=== PATIENT | female | born 1975 | race Caucasian/White ===

== ENCOUNTER 2020-06-17 12:19 | Outpatient (CLI) | payer BC, SELFPAY ==
--- NOTE | ~2020-06-17 | XR_ITS ---
EXAMINATION: XR chest 2V EXAM DATE: 06/17/2020 12:43 INDICATION: Heartburn, chest pressure and discomfort. TECHNIQUE: Frontal and lateral projections of the chest obtained and reviewed. There is no prior kalyani dy for comparison. FINDINGS: The lungs are hyperinflated which can be seen with chronic obstructive pulmonary disease ( a clinical diagnosis of functional impairment), but is not diagnostic of it. The lungs are clear. Th ere are no pleural effusions. The cardiomediastinal silhouette is within normal limits. There is no pneumothorax suspected. The bones and soft tissues are unremarkable. IMPRESSION: 1. No acute cardiopulmonary findings. 2. Moderate hyperinflation. Reviewed, dictated and finalized at location B.
[2020-06-17 12:36] LABS: Basophils Absolute Auto 0.04 K/mm3 (0.00-0.10); Basophils Percent Auto 0.5 % (0.0-1.0); Eosinophils Absolute Auto 0.13 K/mm3 (0.02-0.50); Eosinophils Percent Auto 1.6 % (1.0-6.0); Hematocrit 41.8 % (35.0-49.0); Hemoglobin 13.9 g/dL (12.0-15.0); Immature Granulocyte Absolute 0.03 K/mm3 (0.00-0.00); Immature Granulocyte Percent A 0.4 % (0.0-0.0); Lymphocytes Absolute Auto 2.22 K/mm3 (1.10-4.50); Mean Corpuscular HGB Conc 33.3 g/dL (32.0-36.0); Mean Corpuscular Hemoglobin 31.8 pg (27.0-31.0); Mean Corpuscular Volume 95.7 fL (78.0-102.0); Mean Platelet Volume 9.6 fl (9.2-11.8); Monocytes Absolute Auto 0.57 K/mm3 (0.10-0.90); Monocytes Percent Auto 7.2 % (2.0-11.0); Neutrophils Absolute Auto 4.9 K/mm3 (1.7-7.2); Neutrophils Percent Auto 62.3 % (50.0-70.0); Platelet Count Result 251 K/mm3 (150-420); Red Blood Count 4.37 M/mm3 (4.20-5.40); Red Cell Distribution Width 11.9 % (11.6-14.4); White Blood Count 7.9 K/mm3 (4.8-10.8)
[2020-06-17 13:27] LABS: Alanine Aminotransferase 23 U/L (14-59); Alkaline Phosphatase 63 U/L (46-116); Anion Gap 7 mmol/L (8-16); Aspartate Amino Transferase 14 U/L (15-37); Bilirubin,Total 0.6 mg/dL (0.00-1.00); Blood Urea Nitrogen 10 mg/dL (7-18); Calcium 8.9 mg/dL (8.5-10.1); Carbon Dioxide 30 mmol/L (21-32); Chloride 104 mmol/L (98-108); Creatine Kinase 35 U/L (26-192); Creatine Kinase MB < 0.50 ng/mL (0.00-5.00); Estimated Glomerular Filt Rate > 60; Glucose 99 mg/dL (70-99); Osmolality Calculated 291 mOsm/kg (285-295); Sodium 141 mmol/L (136-145); Total Protein 7.1 g/dL (6.4-8.2); Troponin I < 0.02 ng/mL (0.00-0.056)
== END 2020-06-17 12:20 | disposition home or self-care (01) ==
LOC: CHSLAB 12:21
PROVIDERS: PCP Internal Medicine; Visit Provider Internal Medicine
DX: R07.9 Chest pain, unspecified (principal)
CPT/HCPCS: 36415; 71046; 80053; 82550; 82553; 84484; 85025

== ENCOUNTER → 2020-07-17 16:29 | Outpatient (CLI) | payer BC, SELFPAY ==
--- NOTE | ~2020-07-17 | MM_ITS ---
EXAMINATION: MM screening do BI w elsie HISTORY: Screening mammogram TECHNIQUE: Craniocaudal and mediolateral oblique 3-D tomosynthesis images were obtained and synthetic 2-D images were generated. CAD analysis was submitted and interpreted. COMPARISON: 04/21/2020 diagnostic right digital mammogram and complete right breast ultrasound 04/15/2016, 06/02/2014 bilateral digital screening mammogram examinations BREAST PARENCHYMAL COMPOSITION: The breasts are heterogeneously dense, which may obscure small masses . FINDINGS: There is no evidence of suspicious mass, calcification, or architectural distortion to sugg est malignancy in either breast. There has been no suspicious interval change. IMPRESSION: 1. No mammographic evidence of malignancy. 2. Recommend routine screening mammography in one year. BI-RADS Category 1: Negative Reviewed, dictated and finalized at location A.
== END ==
PROVIDERS: Visit Provider Obstetrics & Gynecology Gynecology
DX: Z12.31 Encounter for screening mammogram for malignant neoplasm of breast (principal)
CPT/HCPCS: 77063; 77067

== ENCOUNTER → 2021-03-01 01:06 | Outpatient (CLI) | payer BC, SELFPAY ==
[2021-03-01 19:37] LABS: SARS-CoV-2 RNA PCR Negative
== END ==
PROVIDERS: Visit Provider Internal Medicine Gastroenterology
DX: Z01.812 Encounter for preprocedural laboratory examination (principal); Z20.822 Contact with and (suspected) exposure to COVID-19
CPT/HCPCS: C9803; U0003; U0005

== ENCOUNTER 2021-03-05 01:35 | Day surgery (SDC) | payer BC, SELFPAY ==
[2021-02-21 12:53] VITALS: BMI 22.4
[2021-03-05 07:53] VITALS: BP 132/75; PULSE 58; RESP 15; TEMP 36.8; O2SAT 100; BMI 22.3
[2021-03-05] MEDS: LACTATED RINGERS 1,000 ML 150 ML IV CONT (07:58)
--- NOTE | 2021-03-05 08:16 | WPDANESEPPF ---
Anes - Initial Pre Proc Eval Procedure: Operation Date: 03/05/21 08:30 Proposed Procedures p Screening Colonoscopy - Edward Rebolledo MD Date/Time: 03/05/21 08:16 Surgeon: Edward Rebolledo MD Pre Op Diagnosis: neoplasm screening Patient Data Age: 45 Gender: F Height: 5 ft 5 in Weight: 60.8 kg Last Vital Signs Temp 98.3 F 03/05/21 07:53 Pulse 58 L 03/05/21 07:53 Resp 15 03/05/21 07:53 BP 132/75 03/05/21 07:53 Pulse Ox 100 03/05/21 07:53 Allergies Allergy/AdvReac Type Severity Reaction Status Date / Time No Known Allergies Allergy Mild Verified 03/05/21 07:52 Home Medications Medication Instructions Recorded Confirmed Type sodium,potassium,mag sulfates 17.5 See Rx Instructions PO .COMPLEX 02/12/21 Rx gram-3.13 gram-1.6 gram oral soln #354 ml bupropion HCl 150 mg PO DAILY 02/21/21 03/05/21 History Patient hx anesthesia problems: none Family hx anesthesia problems: none PMFSH Past Medical History Medical History (Updated 03/05/21 @ 08:17 by Gagan Alan MD) Anxiety Depression Family History Family History (Updated 05/24/14 @ 07:13 by DOCTOR UNKNOWN) Grandparent Malignant neoplasm of prostate Family history of coronary artery disease Father Family history of coronary artery disease Social History Social History Smoking status: Current every day smoker Alcohol intake: current Alcohol use details: socially Substance use: never Substance use type: does not use Living arrangements: with family Spiritual care concerns: No Anes - Eval Final PreProcedure Day of Procedure 03/05/21 08:16 Patient weight: normal Heart: regular rate and rhythm Lungs: clear to auscultation Airway: Mallampati scale class II Neurological: alert and oriented Last oral intake: >/= 8 hours ASA classification: II Emergent: no Anesthetic plan: proceed Anesthesia type and monitoring: general GIVS and standard monitoring Informed Consent: The patient's anesthetic plan and its attendant risks and benefits were discussed with the patient/family/POA. Questions were solicited and answers provided to the satisfaction of the patient/family/POA.
--- NOTE | 2021-03-05 08:58 | WPDGICN ---
Assessment and Plan Assessment and plan (1) Family history of colonic polyps: Code(s): Z83.71 - Family history of colonic polyps Status: Acute Assessment and Plan: Patient's father had colon polyps. Plan is for surveillance colonoscopy at this time further recommendations will be given after endoscopy. (2) Left sided abdominal pain: Code(s): R10.9 - Unspecified abdominal pain Status: Acute Assessment and Plan: Patient has a history of chronic left-sided abdominal pain. Etiology unclear she does have a CT scan that was unremarkable. I have suggested she increase the fiber in her diet for possible IBS. GI Consult Note Consult date/time: 03/05/21 08:58 HPI: Shweta Knight is a 45 year old female Seen in evaluation at the request of Dr. Sim Solorzano. patient presents for neoplasia screening colonoscopy. Patient's current weight appetite bowel movements are normal. Her family history is significant her father had colon polyps. Patient does have a history of chronic intermittent left-sided abdominal pain that is gnawing and then occasionally sharp. Recent CT scan of the abdomen was unremarkable. Patient denies any bleeding her bowel habits are normal. Review of Systems Review of Systems: All systems reviewed & are unremarkable except as noted in HPI and below PMFSH Past Medical History Medical History Anxiety Depression Family History Family History (Updated 05/24/14 @ 07:13 by DOCTOR UNKNOWN) Grandparent Malignant neoplasm of prostate Family history of coronary artery disease Father Family history of coronary artery disease Social History Social History Smoking status: Current every day smoker Alcohol intake: current Alcohol use details: socially Substance use: never Substance use type: does not use Living arrangements: with family Spiritual care concerns: No Meds Home Medications and Allergies Home Medications Medication Instructions Recorded Confirmed Type sodium,potassium,mag sulfates 17.5 See Rx Instructions PO .COMPLEX 02/12/21 Rx gram-3.13 gram-1.6 gram oral soln #354 ml bupropion HCl 150 mg PO DAILY 02/21/21 03/05/21 History Allergies Allergy/AdvReac Type Severity Reaction Status Date / Time No Known Allergies Allergy Mild Verified 03/05/21 07:52 Vital Signs Vital Signs - 24 hr 03/05/21 07:53 Temperature 98.3 F Pulse Rate 58 L Respiratory Rate 15 Blood Pressure 132/75 Pulse Oximetry 100 Exam Narrative: Exam Narrative: Physical exam reveals patient be alert. Vital signs stable. HEENT exam is unremarkable. Patient is anicteric. Lungs are clear to auscultation and percussion. Heart is without murmur or extra sounds. Abdominal exam bowel sounds are present soft nontender with no organomegaly. Digital external rectal exam is normal.
[2021-03-05 09:02] VITALS: BP 106/65; PULSE 58; RESP 16; O2SAT 100
[2021-03-05 09:12] VITALS: BP 130/79; PULSE 55; RESP 22; O2SAT 100
[2021-03-05 09:22] VITALS: BP 139/84; PULSE 46; RESP 17; O2SAT 100
== END 2021-03-05 09:29 | disposition home or self-care (01) ==
PROVIDERS: PCP Internal Medicine; Visit Provider Internal Medicine Gastroenterology
PROC: 0DJD8ZZ Inspection of Lower Intestinal Tract, Via Natural or Artificial Opening Endoscopic (ICD-10-PCS; CPT 45378; principal; 2021-03-05 08:30)
DX: Z12.11 Encounter for screening for malignant neoplasm of colon (principal); K62.1 Rectal polyp; K64.8 Other hemorrhoids; R10.9 Unspecified abdominal pain; Z83.71 Family history of colonic polyps; F17.200 Nicotine dependence, unspecified, uncomplicated; F41.8 Other specified anxiety disorders
CPT/HCPCS: 45385; 88305; J2704; J7120

== ENCOUNTER → 2021-11-17 14:14 | Outpatient (CLI) | payer BC, SELFPAY ==
--- NOTE | ~2021-11-17 | MMUS_ITS ---
EXAMINATION: MM diagnostic do BI w elsie, US breast BI complete HISTORY: Bilateral breast masses TECHNIQUE: ML, MLO and craniocaudal 3-D tomosynthesis images of both breasts were performed and [facility] were [facility]. CAD analysis was submitted and interpreted. High resolution complete bilateral breast ultrasound was performed. COMPARISON: 07/17/2020 bilateral screening mammogram 04/21/2016 diagnostic right mammogram and complete right breast ultrasound 04/15/2016 bilateral screening mammogram BREAST PARENCHYMAL COMPOSITION: The breasts are heterogeneously dense, which may obscure small masses . FINDINGS: MAMMOGRAPHIC FINDINGS: No suspicious mass or architectural distortion, malignant calcification, skin thickening or retractio n or significant new or developing density is detected. ULTRASOUND: Right breast: 12:00 periareolar area at area of clinical complaint of palpable lump: 4.9 x 7.3 x 7.7 mm incompletel y circumscribed heterogeneous solid lesion, with adjacent vascularity on color flow imaging; this mas s is new since 04/21/2016. Ultrasound biopsy is recommended. 10:00 4 cm from nipple: Parallel circumscribed hypoechoic 7.4 x 2.2 x 7 mm hypoechoic lesion with thr ough transmission, consistent with benign process Subareolar: 2.5 x 5.6 x 5.8 mm circumscribed parallel complicated cyst with through transmission, sim ign-appearing Left breast: 3:00 3 cm from nipple: Parallel circumscribed hypoechoic 2.4 x 3.8 x 4.4 mm lesion without internal v ascularity or posterior shadowing, likely benign 4:00 0.5 cm from nipple: Similar parallel circumscribed hypoechoic 5.5 x 4.4 x 2.1 mm lesion with thr ough transmission, no internal vascularity, benign in appearance 11:00 3 cm from nipple: Parallel circumscribed sonolucency measuring 4 x 3.3 x 2.2 mm, with through t ransmission, likely a cyst, benign IMPRESSION: Right breast 12:00 incompletely circumscribed solid mass measuring 4.9 x 7.3 x 7.7 mm, new since 04/21; ultrasound-guided biopsy is recommended BI-RADS Category 4: Suspicious abnormality; biopsy should be considered Dr. Mazariegos telephoned the report and ultrasound guided biopsy recommendation of the right breast 12:00 lesion on November 17, 2021 at 1530 hours to triage voicemail. Reviewed, dictated and finalized at location A. 411 DIRECTORY ASSISTANCE OPERATOR IMPRESSION: Right breast 12:00 incompletely circumscribed solid mass measuring 4.9 x 7.3 x 7.7 mm, new since 04/21/2016; ultrasound-guided biopsy is recommended BI-RADS Category 4: Suspicious abnormality; biopsy should be considered Dr. Mazariegos telephoned the report and ultrasound guided biopsy recommendation of [facility] right breast 12:00 lesion on November 17, 2021 at 1530 hours to triage voice mail.
== END ==
PROVIDERS: Visit Provider Nurse Practitioner
DX: N63.10 Unspecified lump in the right breast, unspecified quadrant (principal); N63.20 Unspecified lump in the left breast, unspecified quadrant; R92.8 Other abnormal and inconclusive findings on diagnostic imaging of breast
CPT/HCPCS: 76641; 77062; 77066; G0279

== ENCOUNTER 2025-03-14 11:06 | Outpatient (CLI) | payer BC, SELFPAY ==
--- NOTE | ~2025-03-14 | XR_ITS ---
Clinical Indication: Hypertension, dyspnea, chest pain PA and lateral views of the chest: Comparison: 06/17/2020 Findings: The lungs are clear, without evidence of focal consolidation or pleural effusion. Cardiome diastinal silhouette is within normal limits. Bones and soft tissues are unremarkable. Impression: Normal chest. Reviewed, dictated and finalized at location . Impression: Normal chest.
[2025-03-14 11:20] LABS: Basophils Absolute Auto 0.05 K/mm3 (0.00-0.10); Basophils Percent Auto 0.6 % (0.0-1.0); Eosinophils Absolute Auto 0.22 K/mm3 (0.02-0.50); Eosinophils Percent Auto 2.8 % (1.0-6.0); Hematocrit 42.2 % (35.0-49.0); Immature Granulocyte Absolute 0.04 K/mm3 (0.00-0.00); Immature Granulocyte Percent A 0.5 % (0.0-0.0); Lymphocytes Absolute Auto 1.92 K/mm3 (1.10-4.50); Mean Corpuscular HGB Conc 33.2 g/dL (32-36); Mean Corpuscular Hemoglobin 31.5 pg (27.0-31.0); Mean Platelet Volume 9.2 fl (9.2-11.8); Monocytes Absolute Auto 0.58 K/mm3 (0.10-0.90); Monocytes Percent Auto 7.3 % (2.0-11.0); Neutrophils Absolute Auto 5.18 K/mm3 (1.70-7.20); Neutrophils Percent Auto 64.8 % (50.0-70.0); Nucleated Red Blood Cells Absolute Auto 0.02 K/mm3 (0.00-0.00); Nucleated Red Blood Cells Perc 0.3 % (0-0.0); Platelet Count Result 270 K/mm3 (150-420); Red Blood Count 4.44 M/mm3 (4.20-5.40)
[2025-03-14 11:22] LABS: Add Urine Microscopic? NO; Appearance Urine Clear (Clear); Bilirubin Urine Negative (Negative); Blood Urine Trace-intact (Negative); Color Urine Light Yellow (Yellow); Glucose Urine UA Negative (Negative); Ketones Urine Trace (Negative); Leukocyte Esterase Ur Negative (Negative); Nitrate Urine Negative (Negative); Protein Urine Negative (Negative); Urobilinogen Urine 0.2 mg/dL (0.2-1.0); pH Urine 6.5 (5.0-8.0)
[2025-03-14 11:37] LABS: Alanine Aminotransferase 30 U/L (6-35); Albumin Level 4.2 g/dL (3.5-5.1); Alkaline Phosphatase 60 U/L (38-126); Anion Gap 3 mmol/L (4-12); Aspartate Amino Transferase 32 U/L (14-36); Bilirubin,Total 0.8 mg/dL (0.2-1.3); Blood Urea Nitrogen 8 mg/dL (7-17); CRP < 0.5 mg/dL (<1.0); Calcium 8.9 mg/dL (8.4-10.2); Carbon Dioxide 27 mmol/L (22-30); Chloride 106 mmol/L (98-107); Cholesterol 184 mg/dL (0-200); Estimated Glomerular Filt Rate > 60; Glucose 96 mg/dL (65-110); HDL Direct 79 mg/dL; LDL Cholesterol Calculated 94 mg/dL (<130); Osmolality Calculated 280 mOsm/kg (285-295); Potassium 4.2 mmol/L (3.4-5.0); Sodium 136 mmol/L (137-145); Total Protein 6.9 g/dL (6.3-8.2); Triglycerides 55 mg/dL (<150)
[2025-03-14 12:04] LABS: Thyroid Stimulating Hormone 0.913 uIU/mL (0.465-4.680)
--- OUTSIDE RECORDS SUMMARY | 2025-03-14 12:56 | XMS_ITS | Referral Summary ---
Author Organization [facility] Address [address] [place] [address] Care Team Providers Care Sustainable Landscape Architect Name Role Phone Perfecto Solorzano MD Primary Care Provider [phone] Allergies No known active allergies Medications ibuprofen (ADVIL,MOTRIN) 400 mg tablet Take by mouth every 6 (six) hours as needed for pain Active Active Problems Problem Noted Date Diagnosed Date Mammogram abnormal 12/24/2021 Depression 11/10/2012 Overview (01/02/2017): Depression Atopic rhinitis 11/10/2012 Overview (01/02/2017): Allergic rhinitis Current smoker 11/09/2012 Overview (01/02/2017): Smoker Social History Tobacco Use Types Packs/Day Years Used Date Smoking Tobacco: Every Day Tobacco Cessation:Ready to Q uit: Not Asked; Counseling Given: Not Answered Alcohol Use Standard Drinks/Week Comments Yes 0 (1 standard drink = 0.6 oz pur e alcohol) AUDIT-C Answer Date Recorded Q1: How often do you have a drink containing alcohol? 4 or more times a week 12/24/2021 Q2: How many drinks containi ng alcohol do you have on a typical day when you are drinking? 3 or 4 Q3: How often do you have si x or more drinks on one occasion? 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 Gender Identity Not on file Sexual Orientation Not on file Last Filed Vital Signs Vital Sign Reading Time Taken Comments Blood Pressure 120/76 02/22/2014 3:53 PM CDT Pulse 76 02/22/2014 3:53 PM CDT Temperature - - Respiratory Rate - - Oxygen Saturation 98% 12/07/2013 3:45 PM CDT Inhaled Oxygen Concentration - - Weight 59.4 kg (130 lb 15.3 oz) 04/02/2023 9:09 AM CDT Height 162.6 cm (5' 4.02) 04/02/2023 9:09 AM CD T Body Mass Index 22.47 04/02/2023 9:09 AM CDT Plan of Treatment Not on file Medical Devices Implanted Type Area Motors And Generators Inspector Device Identifier Shelf Expiration Date Model / Serial / Lot Bard Peripheral Vascular Ultraclip Bard 17ga 10cm 2 Trigger Permanent Ultrasound [id number] - [id number] Implanted:Qty: 1 on 01/05/2022 at [facility] Bard Peripheral Vascular [id number] / / Procedures Procedure Name Priority Date/Time Associated Diagnosis Comments SCREENING MAMMOGRAM BILATERAL W [place] Schedule Routine, Read Routine (OP Routine) 09/29/2024 10:19 AM SENIOR PROPERTY ACCOUNTANT Screening mammogram, encounter for from Last 3 Months or Most Recently Relevant to Health Maintenance Results * Screening Mammogram Bilateral [place] (09/29/2024 10:19 AM SENIOR PROPERTY ACCOUNTANT) Anatomical Region Laterality Modality Breast Bilateral Mammography Narrative 09/29/2024 1:53 PM SENIOR PROPERTY ACCOUNTANT Mammogram Technique: Bilateral Digital Breast Tomosynthesis, Bilateral C-view 2D Screening mammogram. Views obtained: bilateral craniocaudal and bilateral mediolateral oblique. Computer Aided Detection was performed. Mammogram Findings: The present examination has been compared to prior imaging studies performed at [facility] on 04/02/2023, and at [facility] on 07/17/2020 and 11/17/2021. The breasts are heterogeneously dense, which may obscure small masses. There is no suspicious abnormality in either breast. Impression: There is no mammographic evidence of malignancy. Annual screening mammography is recommended. If supplemental screening is desired, breast MRI would be recommended in this patient with heterogeneously dense breasts. OVERALL FINAL ASSESSMENT: BI-RADS CATEGORY 1: Negative. Procedure Note Cortney Paulson MD - 09/29/2024 Mammogram Technique: Bilateral Digital Breast Tomosynthesis, Bilateral C-view 2D Screening mammogram. Views obtained: bilateral craniocaudal and bilateral mediolateral oblique. Computer Aided Detection was performed. Mammogram Findings: The present examination has been compared to prior imaging studies performed at [facility] on 04/02/2023, and at [facility] on 07/17/2020 and 11/17/2021. The breasts are heterogeneously dense, which may obscure small masses. There is no suspicious abnormality in either breast. Impression: There is no mammographic evidence of malignancy. Annual screening mammography is recommended. If supplemental screeningis desired, breast MRI would be recommended in this patient with heterogeneously dense breasts. OVERALL FINAL ASSESSMENT: BI-RADS CATEGORY 1: Negative. us Self Screening Mammogram IMG MAMMO PROCEDURES Fi nal Result from Last 3 Months or Most Recently Relevant to Health Maintenance [place] [place] [employer] [place] [facility] Care Teams Sustainable Landscape Architect Relationship Specialty Start Date End Date Perfecto Solorzano MD PCP - General Internal Medicine 11/19/21
--- OUTSIDE RECORDS SUMMARY | 2025-03-14 12:57 | XMS_ITS | Encounter Summary ---
Author Organization [facility] Healthcare Address [address] [place] [address] Care Team Providers Care Building Maintenance Repairer Name Role Phone Glory Hinojosa MD Primary Care Provide r Reason for Visit * Diagnostic Imaging (Routine) - Closed Specialty Diagnoses / Procedures Referred By Contsasha t Referred To Contact Procedures Breast Imaging Screening Outside Reference Aft, Jaieme Fox MD PhD [address] [place] [id number] Phone: tel: fax: Referral ID Status Reason Start Date Expiration Date Visits Re quested Visits Authorized [id number] Closed 12/23/2021 01/22/2023 1 1 Encounter Details Date Type Department Care Team (Late st Contact Info) Description 04/15/2016 Hospital Encounter [facility] [address] [place] [address] Social History Tobacco Use Types Packs/Day Years Used Date Smoking Tobacco: Every Day Alcohol Use Standard Drinks/Week Comments Yes 0 [...] on file 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 Gender Identity Not on file Sexual Orientation Not on file documented as of this encounter Functional Status documented as of this encounter Plan of Treatment Not on file documented as of this encounter Procedures Procedure Name Priority Date/Time Associated Diagnosis Comments BREAST IMAGING MG SCREENING OUTSIDE REFERENCE Routine 04/15/2016 12:00 AM CDT documented in this encounter Results * Breast Imaging Screening Outside Reference (04/15/2016 12:00 AM CDT) Impressions [facility] - 12/23/2021 10:06 AM CDT These images are for Reference purposes only and have not been reviewed by [facility]. There will be no report generated by a [facility] Radiologist. Narrative [facility] - 12/23/2021 10:06 AM CDT EXAMINATION: Images For Reference Purposes Only us Jaimee Aldana MD PhD IMG MAMMO PROCEDURES Final Result [facility] documented in this encounter Visit Diagnoses Not on filedocumented in this encounter Care Teams Building Maintenance Repairer Relationship Specialty Start Date End Date Glory Hinojosa MD PCP - General 11/15/13 11/18/21 documented as of this encounter
--- OUTSIDE RECORDS SUMMARY | 2025-03-14 12:57 | XMS_ITS | Clinical Summary ---
Author Organization [facility] Address [address] [place] [id number] Care Team Providers Care Talend Developer Name Role Phone Perfecto Solorzano MD Primary Care Provider [phone] Allergies No known active allergies Medications ibuprofen (ADVIL,MOTRIN) 400 mg tablet Take by mouth every 6 (six) hours as needed for pain Active Active Problems Problem Noted Date Diagnosed Date Mammogram abnormal 12/24/2021 Depression 11/10/2012 Overview (01/02/2017): Depression Atopic rhinitis 11/10/2012 Overview (01/02/2017): Allergic rhinitis Current smoker 11/09/2012 Overview (01/02/2017): Smoker Surgical History Surgery Date Site/Laterality Comments SECTION section SECTION 2004 section OTHER SURGICAL HISTORY eye muscle surgery BREAST BIOPSY 01/05/2022 Right Medical History Medical History Date Comments Depression Depression History of multiple allergies Al lergies Hx Other Medical sinus problems Anxiety disorder Anxiety Family History Medical History Relation Name Comments Coronary artery disease Father Ramez nary artery disease, premature; Prostate cancer Maternal Grandfather Breast cancer Maternal Great-Grandmother 60's Kidney cancer Maternal Great-Grandmother 70's Coronary artery disease Other 1 Fami ly history of Coronary artery disease; Heart disease Other 2 Family history of Heart disease; Stroke Other 3 Family history of Stroke; Diabetes Other 4 Family history of Diabetes mellitus; Relation Name Status Comments Father Father's Brother Father's Sister Maternal Grandfather Maternal Great-Grandmother Other Other 1 Other 2 Other 3 Other 4 Social History Tobacco Use Types Packs/Day Years [...] on file 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 Gender Identity Not on file Sexual Orientation Not on file Obstetrics History Last Filed Vital Signs Vital Sign Reading [...] 04/02/2023 9:09 AM CDT Plan of Treatment Health Maintenance Due Date Last Done Comments Cervical Cancer Screening 1973 Colon Cancer Screening-Colonoscopy 1973 Depression Screening 1973 Hepatitis C Screening 1973 Regular Well Visit/Exam 18-64 1991 Pneumococcal vaccine <65 (1 of 2 - PCV) 1992 DTaP/Tdap/Td Vaccine (1 - Tdap) 10/30/2006 7 Zoster Vaccine (1 of 2) 2023 Covid-19 Vaccine (4 - season) 2024 10/02/2021, 11/01/2020, 10/04/2020 Influenza Vaccine (Season Ended) 2025 Breast Cancer Screening-Mammogram 09/29/2025 025, 04/02/2023 Hepatitis B Screening Completed 10/01/2006 Medical Devices Implanted Type Area Riveting Machine Operator Device Identifier Shelf Expiration Date Model / Serial / Lot Bard Peripheral Vascular Ultraclip Bard 17ga 10cm 2 Trigger Permanent Ultrasound [id number] - [id number] Implanted:Qty: 1 on 01/05/2022 at [facility] [employer] Peripheral Vascular [id number] / / Procedures Procedure Name Priority Date/Time Associated Diagnosis Comments SCREENING MAMMOGRAM BILATERAL [place] Schedule Routine, Read Routine (OP Routine) 09/29/2024 10:19 AM DESIGN ENGINEER MARINE EQUIPMENT Screening mammogram, encounter for from Last 3 Months or Most Recently Relevant to Health Maintenance Results * Screening Mammogram Bilateral [place] (09/29/2024 10:19 AM DESIGN ENGINEER MARINE EQUIPMENT) Anatomical Region Laterality Modality Breast Bilateral Mammography Narrative 09/29/2024 1:53 PM DESIGN ENGINEER MARINE EQUIPMENT Mammogram Technique: Bilateral Digital Breast Tomosynthesis, Bilateral C-view 2D Screening mammogram. Views obtained: bilateral craniocaudal and bilateral mediolateral oblique. Computer Aided Detection was performed. Mammogram Findings: The present examination has been compared to prior imaging studies performed at [facility] on 04/02/2023, and at [facility] on 07/17/2020 and 11/17/2021. The breasts are [...] compared to prior imaging studies performed at [facility] on 04/02/2023, and at [facility]. [facility] on 07/17/2020 and 11/17/2021. The breasts are [...] Most Recently Relevant to Health Maintenance Insurance [employer] [place] [facility] Care Teams Talend Developer Relationship Specialty Start Date End Date Perfecto Solorzano MD PCP - General Internal Medicine 11/19/21
--- OUTSIDE RECORDS SUMMARY | 2025-03-14 12:57 | XMS_ITS | Encounter Summary ---
Author Organization [facility] Healthcare Address [address] [place] [address] Care Team Providers Care Senior Grant Writer Name Role Phone Glory Hinojosa MD Primary Care Provide r Reason for Visit * Diagnostic Imaging (Routine) - Closed Specialty Diagnoses / Procedures Referred By Contsasha t Referred To Contact Procedures Breast Imaging Screening Outside Reference Aft, Jaimee Fox MD PhD [address] [place] [id number] Phone: tel: fax: Referral ID Status Reason Start Date Expiration Date Visits Re quested Visits Authorized [id number] Closed 12/23/2021 01/22/2023 1 1 Encounter Details Date Type Department Care Team (Late st Contact Info) Description 07/17/2020 Hospital Encounter [facility] [address] [place] [address] Social History Tobacco Use Types Packs/Day Years [...] on file 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 Gender Identity Not on file Sexual Orientation Not on file documented as of this encounter Functional Status documented as of this encounter Plan of Treatment Not on file documented as of this encounter Procedures Procedure Name Priority Date/Time Associated Diagnosis Comments BREAST IMAGING MG SCREENING OUTSIDE REFERENCE Routine 07/17/2020 12:00 AM CDT documented in this encounter Results * Breast Imaging Screening Outside Reference (07/17/2020 12:00 AM CDT) Impressions [facility] - 12/23/2021 10:05 AM CDT These images are for Reference purposes only and have not been reviewed by [facility] Radiology. There will be no report generated by a [facility] Radiologist. Narrative [facility] - 12/23/2021 10:05 AM CDT EXAMINATION: Images For Reference Purposes Only us Jaimee Aldana MD PhD IMG MAMMO PROCEDURES Final Result [facility] documented in this encounter Visit Diagnoses Not on filedocumented in this encounter Care Teams Senior Grant Writer Relationship Specialty Start Date End Date Glory Hinojosa MD PCP - General 11/15/13 11/18/21 documented as of this encounter
--- OUTSIDE RECORDS SUMMARY | 2025-03-14 12:57 | XMS_ITS | Encounter Summary ---
Author Organization [facility] Healthcare Address [address] [place] [address] Care Team Providers Care Predatory Game Hunter Name Role Phone Glory Hinojosa MD Primary Care Provide r Reason for Visit * Diagnostic Imaging (Routine) - Closed Specialty Diagnoses / Procedures Referred By Contsasha t Referred To Contact Procedures Breast Imaging Diagnostic Outside Reference Aft, Jaimee Fox MD PhD [address] [place] [id number] Phone: tel: fax: Referral ID Status Reason Start Date Expiration Date Visits Re quested Visits Authorized [id number] Closed 12/23/2021 01/22/2023 1 1 Encounter Details Date Type Department Care Team (Late st Contact Info) Description 04/21/2016 Hospital Encounter [facility] [address] [place] [address] Social History Tobacco Use Types Packs/Day Years [...] on file 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 Gender Identity Not on file Sexual Orientation Not on file documented as of this encounter Functional Status documented as of this encounter Plan of Treatment Not on file documented as of this encounter Procedures Procedure Name Priority Date/Time Associated Diagnosis Comments BREAST IMAGING MG DIAGNOSTIC OUTSIDE REFERENCE Routine 04/21/2016 12:00 AM CDT documented in this encounter Results * Breast Imaging Diagnostic Outside Reference (04/21/2016 12:00 AM CDT) Impressions [facility] - 12/23/2021 10:06 AM CDT These images are for Reference purposes only and have not been reviewed by [facility]. There will be no report generated by a [facility] Radiologist. Narrative [facility] - 12/23/2021 10:06 AM CDT EXAMINATION: Images For Reference Purposes Only us Jaimee Aldana MD PhD IMG MAMMO PROCEDURES Final Result [facility] documented in this encounter Visit Diagnoses Not on filedocumented in this encounter Care Teams Predatory Game Hunter Relationship Specialty Start Date End Date Glory Hinojosa MD PCP - General 11/15/13 11/18/21 documented as of this encounter
--- OUTSIDE RECORDS SUMMARY | 2025-03-14 12:57 | XMS_ITS | Encounter Summary ---
Author Organization [facility] Healthcare Address [address] [place] [address] Care Team Providers Care Event Decorator Name Role Phone Glory Hinojosa MD Primary Care Provide r Reason for Visit * Diagnostic Imaging (Routine) - Closed Specialty Diagnoses / Procedures Referred By Contac t Referred To Contact Procedures Breast Imaging US Outside Reference Aft, Jaimee Fox MD PhD [address] [place] [id number] Phone: tel: fax: Referral ID Status Reason Start Date Expiration Date Visits Re quested Visits Authorized [id number] Closed 12/23/2021 01/22/2023 1 1 Encounter Details Date Type Department Care Team (Late st Contact Info) Description 04/21/2016 12:05 AM CDT Hospital Encounter [facility] [address] [place] [address] Social History Tobacco Use Types Packs/Day Years [...] on file 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 Gender Identity Not on file Sexual Orientation Not on file documented as of this encounter Functional Status documented as of this encounter Plan of Treatment Not on file documented as of this encounter Procedures Procedure Name Priority Date/Time Associated Diagnosis Comments BREAST IMAGING US OUTSIDE REFERENCE Routine 04/21/2016 12:05 AM CDT documented in this encounter Results * Breast Imaging US Outside Reference (04/21/2016 12:05 AM CDT) Impressions [facility] - 12/23/2021 10:07 AM CDT These images are for Reference purposes only and have not been reviewed by [facility]. There will be no report generated by a [facility] Radiologist. Narrative [facility] - 12/23/2021 10:07 AM CDT EXAMINATION: Images For Reference Purposes Only us Jaimee Aldana MD PhD IMG MAMMO PROCEDURES Final Result [facility] documented in this encounter Visit Diagnoses Not on filedocumented in this encounter Care Teams Event Decorator Relationship Specialty Start Date End Date Glory Hinojosa MD PCP - General 11/15/13 11/18/21 documented as of this encounter
== END 2025-03-14 11:07 | disposition home or self-care (01) ==
LOC: CHSLAB 11:09
PROVIDERS: PCP Internal Medicine; Visit Provider Internal Medicine
DX: Z00.00 Encounter for general adult medical examination without abnormal findings (principal); R06.00 Dyspnea, unspecified; R07.9 Chest pain, unspecified
CPT/HCPCS: 36415; 71046; 80053; 80061; 81003; 84443; 85025; 86140